=== PATIENT | male | born 1990 | race Caucasian/White ===

== ENCOUNTER 2022-03-18 01:36 | Emergency (ER) | payer MEDICAID, SELFPAY ==
[2022-03-18 02:39] VITALS: BP 125/75; PULSE 73; RESP 18; TEMP 36.7; O2SAT 97; BMI 25.0
--- NOTE | 2022-03-18 12:01 | ED_ITS ---
HPI - Skin/Abscess/Foreign Bdy General Chief complaint: Skin/Abscess/Foreign Body Stated complaint: infected pimple on forhead Time Seen by Provider: 03/18/22 11:56 Related Data Previous Rx's Medication Instructions Recorded cephalexin 500 mg capsule 500 mg PO BID 5 days #10 caps 03/18/22 doxycycline hyclate 100 mg capsule 100 mg PO BID 5 days #10 caps 03/18/22 Allergies Allergy/AdvReac Type Severity Reaction Status Date / Time No Known Allergies Allergy Verified 03/18/22 02:36 [facility] Social History Social History Advance Directives: Yes Advance Directives Information Provided: Yes Advance Directives on File: No Physical Exam Vital Signs: Vital Signs: Last Vital Signs Temp 98.1 F 03/18/22 02:39 Pulse 73 03/18/22 02:39 Resp 18 03/18/22 02:39 BP 125/75 03/18/22 02:39 Pulse Ox 97 03/18/22 02:39 O2 Del Method 03/18/22 02:39 BMI result Body Mass Index 25.0 VITAL SIGNS: Reviewed. GENERAL: Well developed, well nourished, in no acute distress. HEAD: Normocephalic/atraumatic EYES: PERRLA, EOMI, patient has a carbuncle between the eyebrows that is indurated with surrounding erythema and there is mild swelling into the bilateral upper eyelids without any visual changes EARS: Ext canals without abnormality OROPHARYNX: no oral lesions noted, posterior pharynx clear LUNGS: Normal breath sounds. No adventitious sounds or accessory muscle use. SpO2<97> CARDIOVASCULAR: Regular rate and rhythm without noted murmurs ABDOMEN: Soft, non-tender, non-distended with bowel sounds. NEUROLOGIC: Alert and oriented x 4. Strength and sensation to light touch were grossly intact x 4. Course Course Course Narrative: 31-year-old male with history and clinical presentation consistent with carbuncle with associated cellulitis, no discrete collection identified on bedside ultrasound and tissue is very indurated however there is bilateral blepharitis without associated erythema. Patient was encouraged to continue with warm compresses, provided with combination analgesics, and placed on antibiotics as he had attempted to express pus himself and suspect overlying infection. Discharge Plan Discharge Clinical Impression: Carbuncle, Cellulitis Patient Disposition: Home, Self-Care Instructions: Cellulitis (ED), Furunculosis and Carbunculosis (ED), Warm Compress or Soak (ED) Additional Instructions: 1. Complete the entire course of antibiotics as prescribed. 2. Recommend [id number] Tylenol/ ibuprofen as needed for pain control. Return to the ER for any worsening of your condition. Prescriptions: New doxycycline hyclate 100 mg capsule 100 mg PO BID 5 Days Qty: 10 0RF cephalexin 500 mg capsule 500 mg PO BID 5 Days Qty: 10 0RF Stand Alone Forms: Work/School Release
[2022-03-18] MEDS: cephALEXin 500 MG CAPSULE PO (12:05)
[2022-03-18] MEDS: Ibuprofen 400 MG TABLET PO (12:05)
[2022-03-18] MEDS: Acetaminophen 325 MG TABLET 975 MG PO (12:06)
== END 2022-03-18 12:09 | disposition home or self-care (01) ==
PROVIDERS: Emergency Provider Student in an Organized Health Care Education/Training Program
DX: L02.03 Carbuncle of face (principal); L03.211 Cellulitis of face; H01.004 Unspecified blepharitis left upper eyelid; H01.001 Unspecified blepharitis right upper eyelid
CPT/HCPCS: 99283

== ENCOUNTER 2024-07-03 16:08 | Outpatient (REF) | payer MEDICAID, SELFPAY ==
[2024-07-04 09:18] LABS: Adenovirus PCR Not Detected (Not Detect.); Bordetella parapertussis PCR Not Detected (Not Detect.); Bordetella pertussis PCR Not Detected (Not Detect.); Chlamydia pneumoniae PCR Not Detected (Not Detect.); Coronavirus 229E PCR Not Detected (Not Detect.); Coronavirus HKU1 PCR Not Detected (Not Detect.); Coronavirus NL63 PCR Not Detected (Not Detect.); Coronavirus OC43 PCR Not Detected (Not Detect.); Human metapneumovirus PCR Not Detected (Not Detect.); Influenza A PCR Not Detected (Not Detect.); Influenza B PCR Not Detected (Not Detect.); Mycoplasma pneumoniae PCR Not Detected (Not Detect.); Parainfluenza 1 PCR Not Detected (Not Detect.); Parainfluenza 2 PCR Not Detected (Not Detect.); Parainfluenza 3 PCR Not Detected (Not Detect.); Parainfluenza 4 PCR Not Detected (Not Detect.); RSV PCR Not Detected (Not Detect.); Rhino/Enterovirus PCR Not Detected (Not Detect.); SARS-CoV-2 PCR Not Detected (Not Detect.)
== END 2024-07-03 16:09 | disposition home or self-care (01) ==
LOC: HO.HHCLNP 16:08
PROVIDERS: Visit Provider Family Medicine
DX: R05.1 Acute cough (principal)
CPT/HCPCS: 87633